=== PATIENT | female | born 1995 | race Two or more races ===

== ENCOUNTER 2019-05-20 09:21 | Outpatient (CLI) | payer MEDICAID ==
[~2019-05-20] VITALS: Ht 165.1 cm; Wt 107.0 kg
== END 2019-05-20 09:57 | disposition home or self-care (01) ==
LOC: LDOP 09:21
PROVIDERS: ATTEND Obstetrics & Gynecology
DX: O46.93 Antepartum hemorrhage, unspecified, third trimester (principal); Z3A.33 33 weeks gestation of pregnancy
CPT/HCPCS: 59025; 99201; G0463

== ENCOUNTER 2019-07-03 19:01 | Inpatient (IN) | payer MEDICAID ==
[~2019-07-03] VITALS: Ht 165.1 cm; Wt 109.1 kg
[2019-07-03 19:15] VITALS: BP 125/79
[2019-07-03] MEDS ORDERED: OXYTOCIN 30U/ 0.9% NaCL 500ML 500 ML IV ONE (19:22)
[2019-07-03] MEDS: LACTATED RINGERS 1,000 ML IV SCH ×2 (19:22→20:54)
[2019-07-03] MEDS: D5%-LACTATED RINGERS 1,000 ML IV SCH (19:22)
[2019-07-03] MEDS ORDERED: OXYTOCIN 30U/ 0.9% NaCL 500ML 500 ML IV PRN (19:22)
[2019-07-03] MEDS: BUPIVACAINE/PF 0.5%, 30ML 62.5 ML, FENTANYL PF 500 MCG in SODIUM CHLORIDE 0.9% 177.5 ML EPIDCONT SCH (19:24)
[2019-07-03] MEDS ORDERED: CALCIUM CARBONATE 500 MG TAB.CHEW PO PRN (19:30)
[2019-07-03] MEDS ORDERED: LACTATED RINGERS 1,000 ML IVBOLUS PRN (19:30)
[2019-07-03] MEDS ORDERED: ONDANSETRON 2MG/ML, 2ML IVPush PRN (19:30)
[2019-07-03] MEDS ORDERED: TERBUTALINE 1 MG/ML, 1ML IVPush PRN (19:30)
[2019-07-03] MEDS ORDERED: EPHEDRINE 50 MG/ML, 1ML IVPush PRN (19:30)
[2019-07-03] MEDS ORDERED: SODIUM CITRATE/CITRIC ACID 30 ML UDC PO PRN (19:30)
[2019-07-03] MEDS ORDERED: TERBUTALINE 1 MG/ML, 1ML SQ PRN (19:30)
[2019-07-03] MEDS ORDERED: FENTANYL PF 100 MCG/2ML IVPush PRN (19:30)
[2019-07-03] MEDS ORDERED: FENTANYL PF 100 MCG/2ML IV PRN (19:30)
[2019-07-03] MEDS ORDERED: METOCLOPRAMIDE 5 MG/ML, 2ML IVPush PRN (19:30)
[2019-07-03] MEDS ORDERED: NEWBORN KIT ONE ×2 (19:32→19:34)
[2019-07-03] MEDS ORDERED: OXYTOCIN 30U/ 0.9% NaCL 500ML 500 ML ONE (19:34)
[2019-07-03] MEDS ORDERED: MISOPROSTOL 200 MCG TABLET ONE (19:34)
[2019-07-03] MEDS ORDERED: LIDOCAINE 1%, 20ML ONE (19:35)
[2019-07-03 20:07] LABS: BASOPHILS # (AUTO) 0.07 x10^3/uL (0-0.1); BASOPHILS % (AUTO) 0 % (0-1); EOSINOPHILS # (AUTO) 0.16 x10^3/uL (0-0.4); EOSINOPHILS % (AUTO) 1 % (1-7); LYMPHOCYTES # (AUTO) 2.12 x10^3/uL (1-3.4); LYMPHOCYTES % (AUTO) 13 % (22-44); MD NO; MEAN CORPUSCULAR HEMOGLOBIN 28.8 pg (27.0-34.8); MEAN CORPUSCULAR HGB CONC 33.3 g/dL (32.4-35.8); MEAN CORPUSCULAR VOLUME 86.6 fL (80-100); MEAN PLATELET VOLUME 11.1 fL (7.4-10.4); MONOCYTES # (AUTO) 0.79 x10^3/uL (0.2-0.8); MONOCYTES % (AUTO) 5 % (2-9); NEUTROPHILS # (AUTO) 13.29 x10^3/uL (1.8-6.8); NEUTROPHILS % (AUTO) 81 % (42-75); PLATELET COUNT 182 x10^3/uL (130-400); RED BLOOD COUNT 4.23 x10^6/uL (3.82-5.3); RED CELL DISTRIBUTION WIDTH 14.1 % (9.6-15.2)
[2019-07-03] MEDS ORDERED: BUPIVACAINE 0.25% ONE (20:30)
[2019-07-04] MEDS: D5%-LACTATED RINGERS 1,000 ML IV SCH ×3 (03:22→19:22)
[2019-07-04] MEDS: LACTATED RINGERS 1,000 ML IV SCH ×6 (03:24→19:24)
[2019-07-04] MEDS ORDERED: DOCUSATE 100 MG CAPSULE PO PRN (05:30)
[2019-07-04] MEDS ORDERED: SIMETHICONE 80 MG CHEW TAB PO PRN (05:30)
[2019-07-04] MEDS ORDERED: MISOPROSTOL 200 MCG TABLET PR PRN (05:30)
[2019-07-04] MEDS ORDERED: OXYcodone/APAP 5/325MG TABLET PO PRN ×2 (05:30)
[2019-07-04] MEDS ORDERED: ONDANSETRON 2MG/ML, 2ML IV PRN (05:30)
[2019-07-04] MEDS ORDERED: IBUPROFEN 600 MG TABLET PO PRN (05:30)
[2019-07-04] MEDS ORDERED: ACETAMINOPHEN 325 MG TABLET PO PRN (05:30)
[2019-07-04] MEDS ORDERED: OXYTOCIN 30U/ 0.9% NaCL 500ML 500 ML ONE (05:46)
[2019-07-04] MEDS: OXYTOCIN 30U/ 0.9% NaCL 500ML 500 ML IV SCH ×2 (05:51→15:21)
[2019-07-04 08:00] VITALS: BP 131/76
[2019-07-04] MEDS ORDERED: PRENATAL VIT/IRON/FA 1 EACH TABLET PO SCH (09:00)
[2019-07-04 12:00] VITALS: BP 128/78
[2019-07-04 13:02] LABS: BASOPHILS # (AUTO) 0.02 x10^3/uL (0-0.1); BASOPHILS % (AUTO) 0 % (0-1); EOSINOPHILS # (AUTO) 0.08 x10^3/uL (0-0.4); EOSINOPHILS % (AUTO) 1 % (1-7); LYMPHOCYTES # (AUTO) 1.66 x10^3/uL (1-3.4); LYMPHOCYTES % (AUTO) 10 % (22-44); MD NO; MEAN CORPUSCULAR HEMOGLOBIN 28.8 pg (27.0-34.8); MEAN CORPUSCULAR HGB CONC 33.2 g/dL (32.4-35.8); MEAN CORPUSCULAR VOLUME 86.7 fL (80-100); MEAN PLATELET VOLUME 10.8 fL (7.4-10.4); MONOCYTES # (AUTO) 0.86 x10^3/uL (0.2-0.8); MONOCYTES % (AUTO) 5 % (2-9); NEUTROPHILS # (AUTO) 13.36 x10^3/uL (1.8-6.8); NEUTROPHILS % (AUTO) 84 % (42-75); PLATELET COUNT 171 x10^3/uL (130-400); RED BLOOD COUNT 4.07 x10^6/uL (3.82-5.3); RED CELL DISTRIBUTION WIDTH 14.2 % (9.6-15.2)
[2019-07-04 16:00] VITALS: BP 128/78
[2019-07-04] MEDS: BUPIVACAINE/PF 0.5%, 30ML 62.5 ML, FENTANYL PF 500 MCG in SODIUM CHLORIDE 0.9% 177.5 ML EPIDCONT SCH (17:31)
[2019-07-04 19:22] VITALS: BP 109/75
[2019-07-05] VITALS: BP 118/78
[2019-07-05] MEDS: OXYTOCIN 30U/ 0.9% NaCL 500ML 500 ML IV SCH (01:21)
[2019-07-05] MEDS: D5%-LACTATED RINGERS 1,000 ML IV SCH (03:22)
[2019-07-05] MEDS: LACTATED RINGERS 1,000 ML IV SCH ×2 (03:22→03:24)
[2019-07-05 04:00] VITALS: BP 106/76
[2019-07-05 08:15] VITALS: BP 106/64
[2019-07-05] MEDS ORDERED: IBUP-1222 PO (09:42)
== END 2019-07-05 13:37 | disposition home or self-care (01) | DRG 807 ==
LOC: LDOP 19:01 → LDIP 19:16 → 2NW 07-04 07:38
PROVIDERS: ADMIT Obstetrics & Gynecology; ATTEND Obstetrics & Gynecology
PROC: 10E0XZZ Delivery of Products of Conception, External Approach (ICD-10-PCS; principal; 2019-07-04)
PROC: 0UQMXZZ Repair Vulva, External Approach (ICD-10-PCS; 2019-07-04)
PROC: 3E0R3BZ Introduction of Anesthetic Agent into Spinal Canal, Percutaneous Approach (ICD-10-PCS; 2019-07-04)
PROC: 00HU33Z Insertion of Infusion Device into Spinal Canal, Percutaneous Approach (ICD-10-PCS; 2019-07-04)
DX: O71.82 Other specified trauma to perineum and vulva (principal); Z37.0 Single live birth; Z3A.39 39 weeks gestation of pregnancy
CPT/HCPCS: 36415; 85025; 86850; 86900; G0378; J2590; J7120